=== PATIENT | female | born 1990 | race Two or more races ===

== ENCOUNTER 2017-07-05 17:58 | Emergency (ER) | payer OTHER ==
[~2017-07-05] VITALS: Ht 170.2 cm; Wt 53.0 kg
[2017-07-05 18:08] VITALS: BP 114/58; PULSE 84; RESP 16; TEMP 99; O2SAT 98
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
[2017-07-05] MEDS ORDERED: IBUP1TAB7 PO (20:30)
[2017-07-05] MEDS ORDERED: CYCL10TA PO (20:30)
== END 2017-07-05 21:04 | disposition home or self-care (01) ==
LOC: PHEFT 17:58
DX: S16.1XXA Strain of muscle, fascia and tendon at neck level, initial encounter (principal); E07.9 Disorder of thyroid, unspecified; V43.52XA Car driver injured in collision with other type car in traffic accident, initial encounter
CPT/HCPCS: 72125; 99283